=== PATIENT | male | born 1970 | race Caucasian/White ===

== ENCOUNTER 2022-08-22 13:13 | Emergency (ER) | payer BC, SELFPAY ==
[2022-08-22 13:18] VITALS: BP 139/89; PULSE 91; RESP 16; TEMP 36.6; O2SAT 100
--- NOTE | 2022-08-22 13:19 | ED.WOUNDLAC ---
HPI - Wound/Laceration General Chief Complaint: Wound/Laceration Stated Complaint: rt thumb laceration Time Seen by Provider: 08/22/22 13:28 Source: patient and RN notes reviewed Mode of arrival: ambulatory Limitations: no limitations History of Present Illness HPI narrative: 51-year-old male presents with concern for laceration to his right hand. He was working on an engine, cut his hand on a fan cover. He denies decreased sensation, strength, range of motion in the digit. Denies other injury. He is not sure of his tetanus vaccination Related Data Home Medications Medication Instructions Recorded Confirmed amlodipine 5 mg tablet 5 mg PO DAILY 08/22/22 08/22/22 famotidine 20 mg tablet 20 mg PO BID 08/22/22 08/22/22 lisinopril 10 1 tablet PO DAILY 08/22/22 08/22/22 mg-hydrochlorothiazide 12.5 mg tablet metformin 500 mg tablet 500 mg PO DAILY 08/22/22 08/22/22 rosuvastatin 5 mg tablet 5 mg PO DAILY 08/22/22 08/22/22 sildenafil (pulm.hypertension) 20 20 mg PO DIRECTED 08/22/22 08/22/22 mg tablet Allergies Allergy/AdvReac Type Severity Reaction Status Date / Time No Known Allergies Allergy Mild Verified 08/22/22 13:28 Review of Systems Review of Systems: CONSTITUTIONAL: Denies malaise, chills, sweats, or fever. SKIN: Reports laceration the dorsal aspect of the right hand the 1st digit MUSCULOSKELETAL: Denies muscle skeletal pain NEUROLOGIC: Denies numbness, weakness All systems reviewed & are unremarkable except as noted in HPI and below PMFSH Social History Social History (Updated 05/11/21 @ 09:50 by Mayra Epperson MA) Smoking status: Never smoker Alcohol intake: never Substance use: never Comments At time of signature, agree with nursing past medical, surgical, social and family history. There is no relevant family history pertinent to the presenting complaint Exam Narrative: GENERAL: Well-appearing, well-nourished, and in no acute distress. HEAD: Normocephalic EYES: PERRLA, conjunctivae clear NECK: Supple. CHEST: Speaks in full sentences. No respiratory distress. HEART: Regular rate and rhythm. Normal and equal peripheral pulses. EXTREMITIES: 1st digit of the right hand has normal strength and sensation. 5/5 strength with digit flexion, extension. Range of motion normal. No clubbing, cyanosis, or edema noted. No tenderness. Normal digital cascade with flexion of fingers, median, ulnar and radial nerve intact. Normal sensation of each side of finger. No scissoring. Normal thumb opposition. Good capillary refill and radial pulse. Distal capillary refill less than 3 seconds. SKIN: Warn, dry, intact, pink. Approximately 1.5 cm linear laceration through the dermis, not into the subcutaneous tissue noted on the dorsal aspect of the right hand beneath the 1st digit, not involving the joint or flexion point NEURO: Alert and oriented x3. PSYCH: Normal mood and affect Course Course Emergency Course: Patient is aware of diagnosis, understands and agrees to treatment plan. Anticipatory guidance given. Patient agrees to follow-up as directed and is aware of reasons to seek care at the emergency department. Portions of this record may have been created with voice recognition software Level of Care: Express Care Visit Vital Signs Vital signs: Reviewed. Procedures Laceration Laceration 1: Date: 08/22/22 Time: 13:41 Site: hand Side (If applicable): right Size (cm): 1.5 Description: linear Depth: simple, single layer Pre-repair: wound explored and irrigated ====== Skin Level ====== Skin layer closed with: dermabond and steri strips ====== Subcutaneous Layer ====== ====== Muscle Layer ====== ====== Tendon Layer ====== MDM - Wound/Laceration MDM Narrative Medical decision making narrative: Wound explored for foreign body and copious irrigation provided with no evidence of FB. Discussed the potentia
[2022-08-22] MEDS: TETANUS,DIPHTHERIA,AC PERTUSSIS ADULT (0.5 ML) BOOSTRIX IM (13:50)
== END 2022-08-22 14:07 | disposition home or self-care (01) ==
PROVIDERS: Emergency Provider Nurse Practitioner
DX: S61.411A Laceration without foreign body of right hand, initial encounter (principal); W45.8XXA Other foreign body or object entering through skin, initial encounter; Z23 Encounter for immunization; E78.00 Pure hypercholesterolemia, unspecified; I10 Essential (primary) hypertension; K21.9 Gastro-esophageal reflux disease without esophagitis
CPT/HCPCS: 12001; 90471; 90715; 99212; G0463

== ENCOUNTER 2022-10-18 14:45 | Outpatient (RCR) | payer BC, SELFPAY ==
[2022-08-30 13:41] VITALS: BMI 33.0
[2022-09-20 14:35] VITALS: BMI 32.8
[2022-09-20 14:36] VITALS: BMI 32.8
[2022-10-18 15:00] VITALS: BMI 32.5; BMI 32.8
== END 2022-10-19 15:56 | disposition home or self-care (01) ==
LOC: ANHDMC 14:45
PROVIDERS: Referring Provider Internal Medicine; Visit Provider Internal Medicine
DX: E11.22 Type 2 diabetes mellitus with diabetic chronic kidney disease (principal); N18.2 Chronic kidney disease, stage 2 (mild); Z71.3 Dietary counseling and surveillance
CPT/HCPCS: 97802; 97803

== ENCOUNTER 2022-12-27 09:15 | Outpatient (RCR) | payer BC, SELFPAY | END 2023-02-27 23:59 | disposition home or self-care (01) | LOC: ANHDMC 09:15 | DX: E11.22 Type 2 diabetes mellitus with diabetic chronic kidney disease (principal); N18.2 Chronic kidney disease, stage 2 (mild); E11.69 Type 2 diabetes mellitus with other specified complication; E78.2 Mixed hyperlipidemia; Z71.89 Other specified counseling | CPT/HCPCS: G0108 ==

== ENCOUNTER 2023-08-01 09:15 | Outpatient (RCR) | payer BC, SELFPAY | END 2023-08-03 11:39 | disposition home or self-care (01) | LOC: ANHDMC 09:15 | DX: E11.22 Type 2 diabetes mellitus with diabetic chronic kidney disease (principal); E11.69 Type 2 diabetes mellitus with other specified complication; E78.2 Mixed hyperlipidemia; N18.2 Chronic kidney disease, stage 2 (mild); Z71.89 Other specified counseling | CPT/HCPCS: G0108 ==